=== PATIENT | male | born 1985 | race Caucasian/White ===

== ENCOUNTER 2017-10-22 08:30 | Emergency (ER) | payer SELFPAY ==
[2017-10-22 09:37] VITALS: BP 114/63
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
--- NOTE | 2017-10-22 10:21 | RADIOLOGY REPORT (SQ) ---
EXAM DESCRIPTION: SHOULDER RIGHT 2 OR MORE VIEWS COMPLETED DATE/TIME: 10/22/2017 10:00 am REASON FOR STUDY: injury 1 month ago COMPARISON: None. NUMBER OF VIEWS: Three views. TECHNIQUE: Internal rotation, external rotation, and Y view images acquired of the right shoulder. LIMITATIONS: None. FINDINGS: MINERALIZATION: Normal. BONES: No acute fracture or dislocation. No worrisome bone lesions. JOINTS: No dislocation. VISUALIZED LUNGS AND RIBS: No pneumothorax. No rib fracture. SOFT TISSUES: No radiopaque foreign body. OTHER: No other significant finding. IMPRESSION: NEGATIVE STUDY OF THE RIGHT SHOULDER. NO RADIOGRAPHIC EVIDENCE OF ACUTE INJURY. TECHNICAL DOCUMENTATION: JOB ID: [id number] [employer]- All Rights Reserved Reading location - IP/workstation name: [email or web address]
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
== END 2017-10-22 10:45 | disposition home or self-care (01) ==
LOC: ER 08:30
DX: S46.911A Strain of unspecified muscle, fascia and tendon at shoulder and upper arm level, right arm, initial encounter (principal); X58.XXXA Exposure to other specified factors, initial encounter; M25.511 Pain in right shoulder; M25.532 Pain in left wrist; M25.432 Effusion, left wrist; R20.0 Anesthesia of skin; M54.89 Other dorsalgia
CPT/HCPCS: 99283

== ENCOUNTER 2018-10-24 17:30 | Emergency (ER) | payer SELFPAY ==
[2018-10-24 17:35] VITALS: BP 132/82
[2018-10-24] MEDS ORDERED: PENICILLIN V POTASSIUM 500 MG TABLET PO ONE (17:50)
[2018-10-24] MEDS ORDERED: IBUPROFEN 800 MG TABLET PO ONE (17:50)
[2018-10-24] MEDS ORDERED: LIDOCAINE 2% VISCOUS SOLN 20 ML UDCUP PO ONE (17:51)
--- NOTE | 2018-10-24 17:55 | ER Document Report ---
ED Oral Problem - General Chief Complaint: Dental Injury Stated Complaint: FACIAL SWELLING Time Seen by Provider: 10/24/18 17:41 Mode of Arrival: Ambulatory Information source: Patient Notes: 32-year-old male presented to ED for complaint of dental pain to the tooth #6. He states he was eaten food last night when the tooth chipped causing severe pain. He states the pain has been severe all day. He smokes a pack and a half a day. I have explained to him that each time he smokes a cigarette is making his tooth more painful. Also drinks a 12 pack of beer a day. Patient is alert and oriented at this time respirations regular and unlabored speaking in full sentences. TRAVEL OUTSIDE OF THE U.S. IN LAST 30 DAYS: No - HPI Patient complains to provider of: Toothache Onset: Yesterday Onset: Gradual Quality of pain: Sharp, Throbbing Severity: Severe Pain Level: 5 Associated symptoms: Toothache Worsened by: Heat Similar symptoms previously: Yes - Related Data Allergies/Adverse Reactions: iodine Allergy (Verified 10/24/18 17:35) shellfish derived Allergy (Verified 10/24/18 17:35) Past Medical History - General Information source: Patient - Social History Smoking Status: Current Every Day Smoker Cigarette use (# per day): Yes - Pack and a half a day Smoking Education Provided: Yes Drug Abuse: None Occupation: Construction Lives with: Alone Family History: Reviewed & Not Pertinent Patient has suicidal ideation: No Patient has homicidal ideation: No - Past Medical History Cardiac Medical History: Reports: None Pulmonary Medical History: Reports: None EENT Medical History: Reports: None Neurological Medical History: Reports: None Endocrine Medical History: Reports: None Renal/ Medical History: Reports: None Malignancy Medical History: Reports None GI Medical History: Reports: None Musculoskeletal Medical History: Reports Hx Musculoskeletal Trauma - Broken nose Skin Medical History: Reports None Psychiatric Medical History: Reports: None Traumatic Medical History: Reports: Hx Fractures - Nose Infectious Medical History: Reports: None Past Surgical History: Reports: Hx Nose Surgery - Fractured nose Review of Systems - Review of Systems Constitutional: No symptoms reported EENT: Dental problem Cardiovascular: No symptoms reported Respiratory: No symptoms reported Gastrointestinal: No symptoms reported Genitourinary: No symptoms reported Male Genitourinary: No symptoms reported Musculoskeletal: No symptoms reported Skin: No symptoms reported Hematologic/Lymphatic: No symptoms reported Neurological/Psychological: No symptoms reported -: Yes All other systems reviewed and negative Physical Exam - Vital signs Vitals: Temp Pulse Resp BP Pulse Ox 98.1 F 86 16 132/82 H 97 10/24/18 17:34 10/24/18 17:34 10/24/18 17:34 10/24/18 17:34 10/24/18 17:34 Interpretation: Normal - General General appearance: Appears well, Alert - HEENT Head: Normocephalic, Atraumatic Eyes: Normal Pupils: PERRL Ears: Normal External canal: Normal Tympanic membrane: Normal Sinus: Normal Nasal: Normal Mouth/Lips: Caries Mucous membranes: Normal Teeth diagram: 1 - Part of the tooth has been checked out there is a large cavity underneath mild gum swelling no facial swelling noted - Respiratory Respiratory status: No respiratory distress Chest status: Nontender Breath sounds: Normal Chest palpation: Normal - Cardiovascular Rhythm: Regular Heart sounds: Normal auscultation Murmur: No - Abdominal Inspection: Normal Distension: No distension Bowel sounds: Normal Tenderness: Nontender Organomegaly: No organomegaly - Back Back: Normal, Nontender - Extremities General upper extremity: Normal inspection, Nontender, Normal color, Normal ROM, Normal temperature General lower extremity: Normal inspection, Nontender, Normal color, Normal ROM, Normal temperature, Normal weight bearing. No: Mimi's sign - Neurological Neuro grossly intact: Yes Cognition: Normal Orientation: AAOx4 Jenny Coma Scale Eye Opening: Spontaneous Jenny Coma Scale Verbal: Oriented [place] Coma Scale Motor: Obeys Commands Jenny Coma Scale Total: 15 Speech: Normal Motor strength normal: LUE, RUE, LLE, RLE Sensory: Normal - Psychological Associated symptoms: Normal affect, Normal mood - Skin Skin Temperature: Warm Skin Moisture: Dry Skin Color: Normal Course - Re-evaluation Re-evalutation: 10/24/18 18:01 Presentation is most consistent with likely an infected tooth. Airway is patent. Vitals within normal limits. Patient is able swallow without any difficulty. There is no significant facial swelling. No evidence of Pierce angina, apical abscess, or airway obstruction. Patient will be started on antibiotics. I've instructed to follow-up with dentistry as earliest ability for definitive management. At this time will discharge with return precautions and follow-up recommendations. Verbal discharge instructions given a the bedside and opportunity for questions given. Medication warnings reviewed. Patient is in agreement with this plan and has verbalized understanding of return precautions and the need for primary care follow-up in the next 24-72 hours. - Vital Signs Vital signs: Temp Pulse Resp BP Pulse Ox 98.1 F 86 16 132/82 H 97 10/24/18 17:34 10/24/18 17:34 10/24/18 17:34 10/24/18 17:34 10/24/18 17:34 Discharge - Discharge Clinical Impression: Pain due to dental caries Condition: Stable Disposition: HOME, SELF-CARE Additional Instructions: TOOTHACHE: Your pain is due to dental decay. The tooth must be repaired in order for you to feel better. You will, therefore, be referred to a dentist. We do not have dentists on the staff at [facility]. Severe swelling or drainage around a tooth usually means a dental abscess. This also requires evaluation and treatment by the dentist, but antibiotics may be prescribed while awaiting dental treatment. You should be rechecked immediately if you develop major swelling of the face, increasing pain, a lump in the jaw or gums, headache, difficulty swallowing, or fever. PENICILLIN V K: You have been given a prescription for Penicillin VK. Your physician has determined that this is the best antibiotic for your condition. Pen VK can be taken with meals, however more of the antibiotic gets into the bloodstream if it's taken on an empty stomach. Penicillin usually has no side effects. However, allergy to penicillins is common. If you have had an allergic reaction to any drug of the penicillin family, you should never take any other penicillin. Notify your doctor at once if you develop hives, itching, swelling, faintness, or shortness of breath. FOLLOW-UP CARE: You have been referred for follow-up care to the dentists listed below. Call the dentists office for an appointment as you were instructed or within the next two days. If you experience worsening or a significant change in your symptoms, notify the physician immediately or return to the Emergency Department at any time for re-evaluation. [facility] [address] [facility] [address] [place] [address] [facility] [address] [facility] [address] [facility] [address] [facility] [place] [address] [facility] [email or web address] [address] [place] [address] Thursday- 8:00am to 5:00 pm Will see patients from other [facility]. Charges based on income and family size and accepts Medicare, Medicaid, and Insurances Will pull molars [facility] [address] Hours of Operation 8:00 am - 4:30 pm weekdays The following dental offices accept Medicaid: [facility] Dr. Mehta Dr. Alvares Dr. Puga Dr. Arechiga Jose Hayes, Willem, and Jaqueline oral surgery Dr. Plummer ([place]) Dr. Suazo ([place]) [facility] Drs. Mayes and Gary ([place]) Dr. Mckeon ([place]) [facility] Dr. Kolb ([place]) Drs. Vides and ([place]) Medicaid Care Line Prescriptions: Ibuprofen [Motrin 800 mg Tablet] 800 mg PO Q8H PRN #30 tab PRN Reason: Penicillin V Potassium [Penicillin Vk 500 mg Tablet] 500 mg PO BID #20 tablet Forms: Elevated Blood Pressure, Smoking Cessation Education, Return to Work
== END 2018-10-24 18:05 | disposition home or self-care (01) ==
LOC: ER 17:30
DX: K02.9 Dental caries, unspecified (principal); K08.89 Other specified disorders of teeth and supporting structures; F17.210 Nicotine dependence, cigarettes, uncomplicated; Z91.013 Allergy to seafood
CPT/HCPCS: 99282; J3490

== ENCOUNTER 2019-10-03 12:38 | Emergency (ER) | payer SELFPAY ==
[2019-10-03 13:14] VITALS: BP 131/67
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
[2019-10-03] MEDS ORDERED: TETRACAINE HCL 0.5% OPH SOLN 4 ML ONE (14:46)
[2019-10-03] MEDS ORDERED: NICOTINE 21 MG/24 HR PATCH.TD24 TD ONE (14:52)
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
== END 2019-10-03 15:09 | disposition left against medical advice (07) ==
LOC: ER 12:38
DX: S02.31XA Fracture of orbital floor, right side, initial encounter for closed fracture (principal); S02.2XXA Fracture of nasal bones, initial encounter for closed fracture; R22.0 Localized swelling, mass and lump, head; Y09 Assault by unspecified means; Z88.8 Allergy status to other drugs, medicaments and biological substances; Z53.29 Procedure and treatment not carried out because of patient's decision for other reasons; F17.200 Nicotine dependence, unspecified, uncomplicated
CPT/HCPCS: 70450; 70486; 99284; J3490